=== PATIENT | female | born 1970 | race African-American/Black ===

== ENCOUNTER 2017-11-29 20:26 | Emergency (ER) | payer BC ==
[~2017-11-29] VITALS: Ht 157.5 cm; Wt 81.6 kg
--- OUTSIDE RECORDS SUMMARY | 2017-11-29 20:28 | XMS REPORT | Clinical Summary ---
Author Author [facility] Organization [facility] Address Unknown Phone Unavailable Care Team Providers Care Manager Editorial Name Role Phone Asked, Pcp PCP Unavailable Allergies Active Allergy Reactions Severity Noted Date Comments Acetaminophen 08/26/2016 Codeine 08/26/2016 Ibuprofen 08/26/2016 Tramadol 08/26/2016 Current Medications Prescription Sig. Disp. Refills Start End Date Status Date meloxicam (MOBIC) 15 mg 07/26/20 Active tablet 16 carisoprodol (SOMA) 350 08/08/19 Active MG tablet 14 losartan-hydrochlorothiaz 10/10/19 Active jose david (HYZAAR) 100-25 mg 14 per tablet gabapentin (NEURONTIN) 07/08/20 Active 100 mg capsule 16 meloxicam (MOBIC) 15 mg Take 1 tablet (15 mg 90 tablet 2 09/15/19 tablet total) by mouth daily for 17 17 90 days. Active Problems Problem Noted Date SLAP lesion, type II 01/07/2017 Complete tear of right rotator cuff 01/07/2017 Encounters Date Type Specialty Care Team Description 10/12/2017 Office Visit Orthopedic Surgery José Miguel Dickerson MD S/P rotator cuff repair (Primary Dx) 06/14/2017 Transcribe Physical Therapy José Miguel Dickerson MD Complete tear of right Orders rotator cuff (Primary Dx); Type 2 superior labrum extending from anterior to posterior (SLAP) lesion of right shoulder, subsequent encounter 05/18/2017 Office Visit Orthopedic Surgery José Miguel Dickerson MD Complete tear of right rotator cuff (Primary Dx); Type 2 superior labrum extending from anterior to posterior (SLAP) lesion of right shoulder, subsequent encounter 02/04/2017 Office Visit Orthopedic Surgery José Miguel Dickerson MD Complete tear of right rotator cuff (Primary Dx); SLAP lesion, type II, right, subsequent encounter 01/17/2017 Transcribe Physical Therapy José Miguel Dickerson MD Complete rotator cuff Orders tear or rupture of right shoulder, not specified as traumatic (Primary Dx); Right shoulder pain, unspecified chronicity; Stiffness of right shoulder, not elsewhere classified; Superior glenoid labrum lesion of right shoulder, subsequent encounter 01/07/2017 Office Visit Orthopedic Surgery José Miguel Dickerson MD Complete tear of right rotator cuff (Primary Dx); SLAP lesion, type II, right, subsequent encounter 12/17/2016 Transcribe Physical Therapy José Miguel Dickerson MD Complete rotator cuff Orders tear or rupture of right shoulder, not specified as traumatic (Primary Dx); Right shoulder pain, unspecified chronicity; Stiffness of right shoulder, not elsewhere classified; Superior glenoid labrum lesion of right shoulder, subsequent encounter 12/10/2016 Office Visit Orthopedic Surgery José Miguel Dickerson MD Complete tear of right rotator cuff (Primary Dx); SLAP lesion, type II, right, subsequent encounter 10/18/2016 [facility] José Miguel Dickerson MD - Encounter 12/17/2016 after 11/28/2016 Family History Relation Name Status Comments Father Alive Mother Alive Social History Tobacco Use Types Packs/Day Years Used Date Never Smoker Smokeless Tobacco: Never Used Alcohol Use Drinks/Week oz/Week Comments Yes Sex Assigned at Date Recorded Not on file Last Filed Vital Signs Not on file Plan of Treatment Health Maintenance Due Date Last Done Comments PAP SMEAR 1991 INFLUENZA VACCINE 03/08/2018 Results Not on fileafter 11/28/2016 Insurance Payer Benefit Subscriber ID Type Phone Address Plan / Group BCBS BCBS xxxxxxxxxxxx PPO CHOICE PPO/DREW RAMOS PPO Home:
--- OUTSIDE RECORDS SUMMARY | 2017-11-29 20:28 | XMS REPORT | Summary of Care ---
Author Author MOSHE ARREAGA M.D. Organization Unknown Address Unknown Phone Unavailable Care Team Providers Care International Student Counselor Name Role Phone MOSHE ARREAGA M.D. Unavailable Unavailable Unavailable Unavailable Functional Status Name Dates Details Functional status health issues are not documented Status: Name Dates Details Cognitive status health issues are not documented Status: Problems Name Dates Details Knee pain (719.46, M25.569) Status: Active Visit for screening mammogram (V76.12, Z12.31) Status: Active DUB (dysfunctional uterine bleeding) (626.8, N93.8) Status: Active test negative (V72.41, Z32.02) Status: Active Well woman exam (V72.31, Z01.419) Status: Active Pelvic pain in female (625.9, R10.2) Status: Active Medications Name Dates Details Reclipsen 0.15-30 MG-MCG Oral Tablet TAKE 1 TABLET DAILY DIRECTED. Quantity: 90 MOSHE ARREAGA M.D. * Start : 13-Sep-2016 Active Xanax 1 MG Oral Tablet * Refills: 0 R.N. * Start : 13-Sep-2016 Active Reclipsen 0.15-30 MG-MCG Oral Tablet TAKE 1 TABLET BY MOUTH DAILY * Quantity: 1 Refills: 0 MOSHE ARREAGA M.D. * Start : 22-Oct-2016 Active 28 Tablet Pack Losartan Potassium-HCTZ 100-25 MG Oral Tablet * Refills: 0 R.N. * Start : 14-Nov-2017 Active Allergies and Adverse Reactions Name Dates Details Acetaminophen-Codeine TABS (Allergy) Status: Active codeine (Allergy) Status: Active Ibuprofen TABS (Allergy) Status: Active tramadol (Allergy) Status: Active Past Medical History Name Dates Details History of fibromyalgia (V13.59, Z87.39) Status: Resolved History of hypertension (V12.59, Z86.79) Status: Resolved Procedures Procedure Dates Details [L] Vitamin D, 25-Hydroxy, Total - Esoterix Date: 14-Nov-2017 [QLH] CBC (INCLUDES DIFF/PLT) Date: 14-Nov-2017 [QLH] CMP W/EGFR Date: 14-Nov-2017 [QL] HEMOGLOBIN A1c Date: 14-Nov-2017 [QL] LIPID PANEL Date: 14-Nov-2017 [QLH] T4, FREE Date: 14-Nov-2017 [QLH] TSH, 3RD GENERATION Date: 14-Nov-2017 [place] Digital Mammo Screening Harry [id number] Date: 14-Nov-2017 US Pelvis with Pelvis Transvaginal [id number] Date: 14-Nov-2017 History of Bunion Correction By Cheilectomy Completed History of Neck surgery Completed Immunization Name Dates Details Immunizations not documented Family History Name Dates Details Family history of hypertension (V17.49, Z82.49) Status: Active Name Dates Details Family history of lung cancer (V16.1, Z80.1) Status: Active Name Dates Details Family history of hypertension (V17.49, Z82.49) Status: Active Family history of malignant neoplasm of breast (V16.3, Z80.3) Status: Active Family history of lung cancer (V16.1, Z80.1) Status: Active Social History Name Dates Details - Status: Name Dates Details Never smoker Vital Signs Date Test Result Details [id number] BP Systolic 174 mm[Hg] Status: Comments: Location: RUE; Position: Sitting BP Diastolic 113 mm[Hg] Status: Comments: Location: RUE; Position: Sitting Height 62 in Status: Weight 184 lb Status: Body Mass Index Calculated 33.65 kg/m2 Status: Body Surface Area Calculated 1.84 m2 Status: Heart Rate 79 /min Status: Results Date Description Value Details [id number] [O] Urine Test (in office) Test, Urine negative (Normal) 14-Nov-20170:00 . [facility] - PAP Comments: Department of Pathology & Laboratory Medicine For: MSB [id number] [place] [id number] [id number] [address] Phone: [phone] Email: [email or web address] [address] [email or web address]/ Thin Prep CervicalEndocervical LMP: Clinical History: WWE HPV Statement of Adequacy: Satisfactory for evaluation.Endocervical/transformation component present. Diagnosis:Negative for intraepithelial lesion or malignancy. Capsule Filler: Lina Owen Comment:This PAP was manually screened due to unsuccessful fibre technologist screening HPVHigh Risk~NegativeTesting is performed using FDA-approved APTIMA HPV assay (i.e., Blast Furnace Checker- mediatedamplification of E6/E7 viral mRNA followed by hybridization protection assay). Thisassay is designed to detect the 14 high-risk types of human papillomavirus (HPV Types 16,18, 31, 33, 35, 39, 45, 51, 52, 56, 58, 59, 66 and 68) known to cause cervical cancer. The assay has been reported to detect more than 90% of CIN3+, an immediate precursor tocarcinoma in situ. A negative result does not exclude the possibility of cytologicabnormalities or of future or underlying CIN2, CIN3, or cancer. Personal lubricantscontaining polyquaternium 15 and antifungal medications containing tioconazole mayinterfere with the assay performance. In vitro transcripts from low-risk HPV sgioqqejm23, 67, 70 and 82 exhibited cross-reactivity with the assay. The test result must beinterpreted along with the patient's cytology history, other risk factors and otherpertinent laboratory data. The results of this test are not intended to substitute forregular cervical cytology screening. The assay performance has not been evaluated forHPV vaccinated individuals. The effects of other potential variables, such as vaginaldischarge, use of tampons, etc. and specimen collection variables have not beenevaluated.This assay has been validated by the [facility] Department of Pathology and Laboratory Medicine.Erma Haddad MD, PhD The pap smear is a screening test used as an aid in detecting cervical cancer and itsprecursors. Published data indicates that pap smear testing is subject to false negativeand false positive results. For this reason, periodic repeat testing and follow up of anyunexplained clinical signs and symptoms is recommended.This slide was screened with the aid of the [employer] System. PAP REPORT Plan of Care Name Dates Details Planned Observations Planned Goals not documented Instructions Name Dates Details Instructions not documented Encounters Appointment; MOSHE ARREAGA M.D. Encounter Diagnosis: Problem not documented On: 13-Sep-2016 14:00 Appointment; MOSHE ARREAGA M.D. Encounter Diagnosis: Problem not documented On: 06-Oct-2016 9:30 Appointment; MOSHE ARREAGA M.D. Encounter Diagnosis: Problem not documented On: 14-Nov-2017 14:00
[2017-11-29] MEDS ORDERED: DIPHENHYDRAMINE HCL INJ 50 MG/ML VIAL IV ONE (21:00)
[2017-11-29] MEDS ORDERED: CLONIDINE HCL 0.1 MG TAB PO ONE (21:00)
[2017-11-29] MEDS ORDERED: METHYLPREDNISOLONE SOD SUCC 125 MG/2ML VIAL IV ONE (21:00)
[2017-11-29] MEDS ORDERED: HYZAAR 100-251 EACH PO (21:47)
[2017-11-29] MEDS ORDERED: COREG12.5 MG PO (21:47)
[2017-11-29] MEDS ORDERED: NITROGLYCERIN 2% OINT 1 GM PKT TOP ONE (22:45)
== END 2017-11-29 23:00 | disposition left against medical advice (07) ==
LOC: FSED 20:26
DX: L27.0 Generalized skin eruption due to drugs and medicaments taken internally (principal); T50.905A Adverse effect of unspecified drugs, medicaments and biological substances, initial encounter; I10 Essential (primary) hypertension; R07.9 Chest pain, unspecified
CPT/HCPCS: 93005; 99284; J1200; J2930